=== PATIENT | female | born 1950 | race Caucasian/White ===

== ENCOUNTER 2019-10-24 13:53 | Outpatient (CLI) | payer MEDICARE, OTHER, SELFPAY ==
--- NOTE | 2019-10-24 14:30 | XR_ITS ---
WS: [id number] SCREENING DEXA SCAN [employer] CLINICAL INFORMATION: POSTMENOPAUSAL OSTEOPOROSIS COMPARISON: August 26, 2017 FINDINGS: The L1-L4 bone mineral density measures 1.277 g/cm2. This corresponds to a T score score of 0.8 and Z score of 1.9. Left femoral neck bone mineral density measures 0.864 g/cm2. This corresponds to a T score of -1.1 an d Z score of -0.1. Right femoral neck bone mineral density measures 0.857 g/cm2. This corresponds to a T score -1.2of an d Z score of -0.1. Mean femoral neck bone mineral density measures 0.860 g/cm2. This corresponds to a T score of -1.2 an d Z score of -0.1. XR/XR DEXA axial skeleton* [id number] IMPRESSION: 1. Osteopenia in the femoral necks. 2. Normal calculated bone mineral density lumbar spine. This is likely spuriou sly elevated due to endplate sclerosis. Patient's FRAX calculated 10 year probability for major osteoporotic fracture i s 16.4 % and osteoporotic hip fracture is 4.1%. Bone mineral density in the lumbar spine has decreased -0.8% since August 26 and -5.8% since June 29, 2013 Bilateral density in the femoral necks has decreased -5.4% since 2017 and -10.9 % since 2013.
== END 2019-10-24 13:54 | disposition home or self-care (01) ==
LOC: RADWPI 13:59
PROVIDERS: Family Provider Family Medicine; Visit Provider Family Medicine
DX: M81.0 Age-related osteoporosis without current pathological fracture (principal); M85.88 Other specified disorders of bone density and structure, other site
CPT/HCPCS: 77080

== ENCOUNTER → 2021-12-16 12:15 | Outpatient (BNVA) | payer MEDICARE, OTHER, SELFPAY | PROVIDERS: Family Provider Family Medicine; PCP Family Medicine; Visit Provider Internal Medicine | DX: I10 Essential (primary) hypertension (principal); R42 Dizziness and giddiness; R01.1 Cardiac murmur, unspecified | CPT/HCPCS: 93005; 99203; 99204 ==

== ENCOUNTER → 2022-02-11 10:00 | Outpatient (BNVA) | payer MEDICARE, OTHER, SELFPAY | PROVIDERS: Family Provider Family Medicine; PCP Family Medicine; Visit Provider Family Medicine | DX: E53.8 Deficiency of other specified B group vitamins (principal); Z51.81 Encounter for therapeutic drug level monitoring; E03.9 Hypothyroidism, unspecified; Z13.220 Encounter for screening for lipoid disorders; R25.2 Cramp and spasm; E55.9 Vitamin D deficiency, unspecified; E78.5 Hyperlipidemia, unspecified | CPT/HCPCS: 80053; 80061; 82306; 82607; 83735; 84439; 84443; 85025 ==

== ENCOUNTER 2022-02-16 11:11 | Outpatient (CLI) | payer MEDICARE, OTHER, SELFPAY ==
--- NOTE | 2022-02-16 11:00 | USCV_ITS ---
Daniela Hinson Age: 72 Gender: F : 1950 Exam Date: 02/16/2022 11:27 Ordering Phys: Dusty Figueroa M.D ([email or web address]) Technologist: Radha Koch Exam Location: [facility] [place] Indication: dyspnea BP: 138 / 74 HR: 62 Rhythm: Sinus Technical Quality: Good MEASUREMENTS (Male / Female) Normal Values 2D ECHO LV Diastolic Diameter PLAX 4.4 cm 4.2 - 5.9 / 3.9 - 5.3 cm LV Systolic Diameter PLAX 2.9 cm IVS Diastolic Thickness 1.2 cm 0.6 - 1.0 / 0.6 - 0.9 cm IVS Systolic Thickness 1.6 cm LVPW Diastolic Thickness 1.0 cm 0.6 - 1.0 / 0.6 - 0.9 cm LVPW Systolic Thickness 1.6 cm LVOT Diameter 2.1 cm LV Ejection Fraction 2D Teich 64.2 % LV Ejection Fraction MOD 2C 66.4 % LV Ejection Fraction 2C AL 65.4 % LA Diameter 2.6 cm LA Width 2.5 cm LA Height 4.2 cm RA Width 3.7 cm RA Height 5.0 cm Aorta at Sinotubular Diameter 3.2 cm IVC Diameter 1.5 cm M-MODE MV E Point Septal Separation 0.5 cm DOPPLER AV Peak Velocity 122.0 cm/s LVOT Peak Velocity 116.0 cm/s AV Area Cont Eq vti 3.6 cm squared AV Area Cont Eq pk 3.3 cm squared MV Peak Velocity 91.0 cm/s MV Area PHT 3.9 cm squared Mitral E to A Ratio 0.6 MV E' Velocity 26.5 cm/s Mitral E to MV E' Ratio 5.5 Mitral E to LV E' Lateral Ratio 5.7 Mitral E to LV E' Septal Ratio 5.3 TR Peak Velocity 206.0 cm/s TR Peak Gradient 17.0 mmHg Right Atrial Pressure 3.0 mmHg Pulmonary Artery Systolic Pressu 20.0 mmHg PV Peak Velocity 92.0 cm/s RV Acceleration Time 0.1 s RV Ejection Time 0.3 s RV AcT/ET 0.4 FINDINGS Left Ventricle Left ventricle is normal in size. LV systolic function is normal with EF of 55-60%. No regional wall motion abnormalities are seen.Grade 1 diastolic dysfunction Right Ventricle Normal in size and function Right Atrium Normal in size Left Atrium Normal in size Mitral Valve Structurally normal mitral valve. No significant stenosis. Trace mitral regurgitation. Aortic Valve Aortic valve is normal.No significant aortic stenosis or regurgitation Tricuspid Valve Mild tricuspid regurgitation. Pulmonary artery systolic pressure is normal. Pulmonic Valve Not well visualized. Trace pulmonic regurgitation Pericardium Normal Aorta Normal in size IVC Appears to be normal CONCLUSIONS LV systolic function is normal with EF 55 to 60%. Grade 1 diastolic dysfunction Trace mitral regurgitation Mild tricuspid regurgitation Trace pulmonic regurgitation. Compared to prior echocardiogram from 05/20/2015, no significant changes are seen. Dsuty Figueroa MD (Electronically Signed) Final Date: 03 March 2022 12:47 S
== END 2022-02-16 11:12 | disposition home or self-care (01) ==
LOC: RAD 11:11
PROVIDERS: PCP Family Medicine; Visit Provider Internal Medicine
DX: I08.1 Rheumatic disorders of both mitral and tricuspid valves (principal); R06.00 Dyspnea, unspecified
CPT/HCPCS: 93306

== ENCOUNTER → 2022-03-17 12:35 | Outpatient (BNVA) | payer MEDICARE, OTHER, SELFPAY | PROVIDERS: PCP Family Medicine; Visit Provider Internal Medicine | DX: I10 Essential (primary) hypertension (principal); R42 Dizziness and giddiness; R01.1 Cardiac murmur, unspecified | CPT/HCPCS: 99213; 99214 ==

== ENCOUNTER 2022-05-28 10:17 | Outpatient (CLI) | payer MEDICARE, OTHER, SELFPAY ==
--- NOTE | 2022-05-28 10:30 | XR_ITS ---
WS: [id number] Lumbar spine, 3 views, 05/28/2022 Clinical Data: Lumbar radiculopathy bilateral Comparison: Lumbar spine, 08/10/2016 Findings: No compression fractures or subluxation is seen. There is degenerative disc narrowing at all lumbar l evels. There is osteoarthritis and osteoporosis of all the lumbar vertebral bodies. The transverse pr ocesses and SI joints are normal. There is a levoscoliosis. There are clips in the right upper quadrant from a cholecystectomy. XR/XR lumbar spine 2-3V* [id number] Impression: 1. Osteoarthritis and osteoporosis of all lumbar vertebral bodies. 2. Multilevel degenerative disc narrowing. 3. Levoscoliosis.
--- NOTE | 2022-05-28 10:30 | XR_ITS ---
WS: [id number] Cervical spine, 3 views, 05/28/2022 Clinical Data: Cervical radiculopathy - left Comparison: None. Findings: No compression fractures are seen. There is degenerative disc narrowing at C6-C7 with anter ior osteophytes. There is no prevertebral soft tissue swelling. The odontoid is unremarkable. The yovany g apices are normal. There is minimal calcification in the region of the carotid bifurcations. XR/XR cervical spine 3V* [id number] Impression: Degenerative disc narrowing with anterior osteophytes at C6-C7.
--- NOTE | 2022-05-28 10:30 | XR_ITS ---
WS: [id number] Thoracic spine, 3 views, 05/28/2022 Clinical Data: Thoracic back pain Comparison: Thoracic spine, 11/09/2008. Findings: No compression fractures are seen. The disc heights are normal. There is mild osteoarthritic spurring of the midthoracic vertebral bodies. The paravertebral regions are normal. There are upper abdominal clips from a cholecystectomy. XR/XR thoracic spine 3V* [id number] Impression: Osteoarthritis of the midthoracic vertebral bodies.
== END 2022-05-28 10:18 | disposition home or self-care (01) ==
LOC: RAD 10:21
PROVIDERS: PCP Family Medicine; Visit Provider Family Medicine
DX: M54.12 Radiculopathy, cervical region (principal); M54.16 Radiculopathy, lumbar region; M47.814 Spondylosis without myelopathy or radiculopathy, thoracic region; M47.816 Spondylosis without myelopathy or radiculopathy, lumbar region; M41.86 Other forms of scoliosis, lumbar region; M25.78 Osteophyte, vertebrae
CPT/HCPCS: 72040; 72072; 72100

== ENCOUNTER → 2022-06-18 12:48 | Outpatient (BNVA) | payer MEDICARE, OTHER, SELFPAY | PROVIDERS: PCP Family Medicine; Visit Provider Family Medicine | DX: E03.9 Hypothyroidism, unspecified (principal); Z51.81 Encounter for therapeutic drug level monitoring | CPT/HCPCS: 80053; 84439; 84443; 85025 ==

== ENCOUNTER → 2022-12-30 09:49 | Outpatient (BNVA) | payer MEDICARE, OTHER, SELFPAY | PROVIDERS: PCP Family Medicine; Visit Provider Family Medicine | DX: Z51.81 Encounter for therapeutic drug level monitoring (principal); E55.9 Vitamin D deficiency, unspecified; E03.9 Hypothyroidism, unspecified; E83.42 Hypomagnesemia | CPT/HCPCS: 80053; 80061; 82306; 83735; 84439; 84443; 85025 ==

== ENCOUNTER → 2023-05-11 12:49 | Outpatient (BNVA) | payer MEDICARE, OTHER, SELFPAY | PROVIDERS: PCP Family Medicine; Visit Provider Family Medicine | DX: J06.9 Acute upper respiratory infection, unspecified (principal); J22 Unspecified acute lower respiratory infection | CPT/HCPCS: 87400; 87426 ==

== ENCOUNTER 2023-08-05 12:58 | Outpatient (CLI) | payer MEDICARE, OTHER, SELFPAY ==
--- NOTE | 2023-08-05 13:13 | US_ITS ---
WS: [id number] BILATERAL 3D TOMOSYNTHESIS DIGITAL DIAGNOSTIC MAMMOGRAPHY WITH CAD CLINICAL INFORMATION: Breast pain HISTORY: LEFT breast pain COMPARISON: 2018 TECHNIQUE: Bilateral CC, MLO, and ML views. FINDINGS: Scattered fibroglandular densities bilaterally. A few incidental punctate and lucent centered calcifi cations. No definite parenchymal abnormalities deep to the palpable markers LEFT breast. Ultrasound i s pending. RIGHT breast is unremarkable and unchanged since 2018 ULTRASOUND BREAST LEFT TECHNIQUE: Ultrasound left breast focused area of concern. CLINICAL INFORMATION: Breast pain FINDINGS: Ultrasound LEFT breast areas of concern 3 to 6 o'clock position. Normal underlying parenchymal tissue . No cystic or solid abnormalities. No suspicious lesions to target for biopsy. IMPRESSION: US/US breast LT limited* [id number] BI-RADS: 2-Benign FOLLOW UP: 1 Year Follow-up Recommend return to annual screening mammography.
--- NOTE | 2023-08-05 13:30 | MM_ITS ---
WS: [id number] BILATERAL 3D TOMOSYNTHESIS DIGITAL DIAGNOSTIC MAMMOGRAPHY WITH CAD CLINICAL INFORMATION: Breast pain HISTORY: LEFT breast pain COMPARISON: 2018 TECHNIQUE: Bilateral CC, MLO, and ML views. FINDINGS: Scattered fibroglandular densities bilaterally. A few incidental punctate and lucent centered calcifi cations. No definite parenchymal abnormalities deep to the palpable markers LEFT breast. Ultrasound i s pending. RIGHT breast is unremarkable and unchanged since 2018 ULTRASOUND BREAST LEFT TECHNIQUE: Ultrasound left breast focused area of concern. CLINICAL INFORMATION: Breast pain FINDINGS: Ultrasound LEFT breast areas of concern 3 to 6 o'clock position. Normal underlying parenchymal tissue . No cystic or solid abnormalities. No suspicious lesions to target for biopsy. IMPRESSION: MM/[place] [id number] BI-RADS: 2-Benign FOLLOW UP: 1 Year Follow-up Recommend return to annual screening mammography.
== END 2023-08-05 12:59 | disposition home or self-care (01) ==
LOC: RAD 12:59
PROVIDERS: PCP Family Medicine; Visit Provider Family Medicine
DX: N64.4 Mastodynia (principal); R92.323 Mammographic fibroglandular density, bilateral breasts
CPT/HCPCS: 76642; 77062; G0279

== ENCOUNTER → 2023-09-15 12:06 | Outpatient (BNVA) | payer MEDICARE, OTHER, SELFPAY | PROVIDERS: PCP Family Medicine; Visit Provider Family Medicine | DX: Z51.81 Encounter for therapeutic drug level monitoring (principal); E03.9 Hypothyroidism, unspecified; E53.8 Deficiency of other specified B group vitamins; Z79.899 Other long term (current) drug therapy | CPT/HCPCS: 80053; 82607; 84439; 84443; 85025 ==

== ENCOUNTER 2024-04-14 10:47 | Outpatient (CLI) | payer MEDICARE, OTHER, SELFPAY ==
--- NOTE | 2024-04-14 10:53 | XR_ITS ---
WS: [id number] Right knee, 3 views, 04/14/2024 Clinical Data: Right knee pain Comparison: None. Findings: No fractures or dislocations are seen. The joint spaces are normal. The patella is intact. The soft t issues are unremarkable. XR/XR knee RT 3V* [id number] Impression: Negative right knee. Kellgren-Osvaldo Classification: grade 0 (none): definite absence of x-ray alban nges of osteoarthritis
== END 2024-04-14 10:48 | disposition home or self-care (01) ==
LOC: RAD 10:49
PROVIDERS: PCP Family Medicine; Visit Provider Family Medicine
DX: M25.561 Pain in right knee (principal)
CPT/HCPCS: 73562

== ENCOUNTER → 2024-05-03 13:01 | Outpatient (BNVA) | payer MEDICARE, OTHER, SELFPAY | PROVIDERS: PCP Family Medicine; Visit Provider Family Medicine | DX: E55.9 Vitamin D deficiency, unspecified (principal); Z51.81 Encounter for therapeutic drug level monitoring; E04.1 Nontoxic single thyroid nodule; E53.8 Deficiency of other specified B group vitamins | CPT/HCPCS: 80053; 82306; 82607; 84439; 84443; 84481; 85025 ==

== ENCOUNTER 2024-05-11 12:50 | Outpatient (CLI) | payer MEDICARE, OTHER, SELFPAY ==
--- NOTE | 2024-05-11 13:15 | US_ITS ---
WS: [id number] THYROID ULTRASOUND HISTORY: Thyroid nodule - Left COMPARISON: 08/23/2013 Right lobe: 1.8 cm x 2.3 cm x 4.9 cm (w x ap x l). Volume: 9.5 cm3. Thyroid lobe is top normal size. Increased vascularity and heterogeneity throughout the gland. No dis crete nodule. Very similar to the prior study. Left lobe: 2.0 cm x 2.3 cm x 5.1 cm (w x ap x l). Volume: 10.9 cm3. Thyroid is top normal size. Mild increased vascularity and heterogeneity. Very similar to the prior s katerin. Isthmus: 0.5 cm. US/US thyroid [id number] IMPRESSION: Mildly enlarged heterogeneous, hypervascular thyroid. Very similar to the prior study. This is most likely due to thyroiditis. No nodule for which biopsy is r ecommended.
== END 2024-05-11 12:51 | disposition home or self-care (01) ==
LOC: RAD 12:50
PROVIDERS: PCP Family Medicine; Visit Provider Family Medicine
DX: E04.1 Nontoxic single thyroid nodule (principal)
CPT/HCPCS: 76536

== ENCOUNTER → 2025-02-13 12:09 | Outpatient (BNVA) | payer MEDICARE, OTHER, SELFPAY | PROVIDERS: PCP Family Medicine; Visit Provider Family Medicine | DX: E55.9 Vitamin D deficiency, unspecified (principal); Z00.00 Encounter for general adult medical examination without abnormal findings; Z51.81 Encounter for therapeutic drug level monitoring; E83.42 Hypomagnesemia; E53.8 Deficiency of other specified B group vitamins | CPT/HCPCS: 80053; 80061; 82306; 82607; 83735; 84439; 84443; 85025 ==